=== PATIENT | female | born 2000 | race Caucasian/White ===

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

== ENCOUNTER → 2021-08-27 | Outpatient (CLI) | payer BC | LOC: COL.CARD 07:51 | DX: R07.89 Other chest pain (principal); R00.2 Palpitations ==

== ENCOUNTER → 2021-11-29 | Outpatient (CLI) | payer BC | LOC: COL.RAD 12:20 | DX: R10.11 Right upper quadrant pain (principal) ==

== ENCOUNTER → 2022-09-03 | Outpatient (CLI) | payer OTHER | LOC: COL.VAS 12:48 | DX: C92.41 Acute promyelocytic leukemia, in remission (principal); R00.2 Palpitations ==